=== PATIENT | female | born 1935 | race Caucasian/White ===

== ENCOUNTER → 2021-03-15 | Outpatient (CLI) | payer MEDICARE ==
[~2021-03-15] MED LIST: ALDACTONE 25MG25 MG PO; ASPIR 8181 MG PO; CRESTOR10 MG PO; DIABETA 5 MG TAB5 MG PO; LORTAB 5-325 M1 EACH PO; MEGESTROL ACETA40 MG PO; MS CONTIN TAB S15 MG PO; NORVASC 5 MG TAB5 MG PO; TAMOXIFEN CITRA20 MG PO; TENORMIN 50 MG50 MG PO; TRADJENTA5 MG PO
== END ==
LOC: KOH-I 10:56
DX: D47.3 Essential (hemorrhagic) thrombocythemia (principal); C34.32 Malignant neoplasm of lower lobe, left bronchus or lung; C79.51 Secondary malignant neoplasm of bone; I82.409 Acute embolism and thrombosis of unspecified deep veins of unspecified lower extremity; R91.8 Other nonspecific abnormal finding of lung field
CPT/HCPCS: 71250; 74176

== ENCOUNTER 2021-09-01 19:51 | Inpatient (IN) | payer MEDICARE ==
[~2021-09-01] VITALS: Ht 162.6 cm; Wt 61.2 kg
[~2021-09-01 19:51] MED LIST changes: +MEGACE TAB 40 M40 MG PO; -MEGESTROL ACETA40 MG PO
[2021-09-01 20:46] LABS: HEMOGLOBIN 10.9 gm/dl (12.3-15.3); RED BLOOD COUNT 3.56 M/UL (4.00-5.10); WHITE BLOOD COUNT 6.1 K/UL (4.5-11.0)
[2021-09-01 21:01] LABS: BUN/CREATININE RATIO 12 (0-10)
[2021-09-02] MEDS ORDERED: MEGACE TAB 40 M40 MG PO (09:44)
[2021-09-02] MEDS ORDERED: ELIQUIS2.5 MG PO (09:45)
[2021-09-02] MEDS ORDERED: TRADJENTA5 MG PO (09:46)
[2021-09-02] MEDS ORDERED: GLUCOTROL5 MG PO (09:46)
[2021-09-02] MEDS ORDERED: MULTIVITAMIN1 EACH PO (09:46)
[2021-09-02] MEDS ORDERED: VITAMIN B-12500 MCG PO (09:47)
[2021-09-02 10:35] LABS: WHITE BLOOD COUNT 6.2 K/UL (4.5-11.0)
[2021-09-02 10:45] LABS: HEMOGLOBIN 8.4 gm/dl (12.3-15.3); RED BLOOD COUNT 2.79 M/UL (4.00-5.10)
[2021-09-03 03:59] LABS: HEMOGLOBIN 7.8 gm/dl (12.3-15.3); RED BLOOD COUNT 2.64 M/UL (4.00-5.10); WHITE BLOOD COUNT 6.5 K/UL (4.5-11.0)
--- NOTE | 2021-09-03 13:37 | NUR ---
PATIENT LEFT FLOOR PER SURGERY STAFF AT 1135AM. FAMILY INSTRUCTED TO WAIT ON 2ND FLOOR. SEEN BY DR PRIETO
--- NOTE | 2021-09-03 16:43 | NUR ---
PATIENT RETURNS TO ROOM PER SURGERY STAFF. VS WNL. NADN. WILL CONTINUE TO MONITOR. AQUACEL DRESSING TO THE RIGHT LEG. NO S/S INFECTION OR DRAINAGE NOTED
[2021-09-04 03:08] LABS: WHITE BLOOD COUNT 7.6 K/UL (4.5-11.0)
[2021-09-04 03:36] LABS: HEMOGLOBIN 10.7 gm/dl (12.3-15.3); RED BLOOD COUNT 3.55 M/UL (4.00-5.10)
[2021-09-05 04:10] LABS: HEMOGLOBIN 9.1 gm/dl (12.3-15.3); WHITE BLOOD COUNT 6.9 K/UL (4.5-11.0)
[2021-09-05 04:11] LABS: RED BLOOD COUNT 3.06 M/UL (4.00-5.10)
[2021-09-06 07:37] LABS: HEMOGLOBIN 9.5 gm/dl (12.3-15.3); RED BLOOD COUNT 3.18 M/UL (4.00-5.10); WHITE BLOOD COUNT 7.7 K/UL (4.5-11.0)
[2021-09-06] MEDS ORDERED: HYDROCODON-ACE1 EAC4 PO (12:33)
[2021-09-08 05:57] LABS: RED BLOOD COUNT 3.01 M/UL (4.00-5.10); WHITE BLOOD COUNT 7.1 K/UL (4.5-11.0)
== END 2021-09-08 18:39 | disposition home health service (06) | DRG 481 ==
LOC: ER1 19:51 → PROG CARE 22:08 → M/S 22:08 → CDU 22:08 → PROG CARE 23:50 → M/S 09-05 12:55
PROVIDERS: Emergency Medicine; Internal Medicine; Orthopaedic Surgery; Physician Assistant; ADMIT Internal Medicine
PROC: 0QS704Z Reposition Left Upper Femur with Internal Fixation Device, Open Approach (ICD-10-PCS; 2021-09-03)
PROC: 30233N1 Transfusion of Nonautologous Red Blood Cells into Peripheral Vein, Percutaneous Approach (ICD-10-PCS; principal; 2021-09-03 10:15)
DX: S72.091A Other fracture of head and neck of right femur, initial encounter for closed fracture (principal); N17.9 Acute kidney failure, unspecified; D62 Acute posthemorrhagic anemia; E87.2 Acidosis; I82.409 Acute embolism and thrombosis of unspecified deep veins of unspecified lower extremity; C79.51 Secondary malignant neoplasm of bone; E44.0 Moderate protein-calorie malnutrition; M48.54XA Collapsed vertebra, not elsewhere classified, thoracic region, initial encounter for fracture; Z20.822 Contact with and (suspected) exposure to COVID-19; W18.31XA Fall on same level due to stepping on an object, initial encounter; E11.65 Type 2 diabetes mellitus with hyperglycemia; I12.9 Hypertensive chronic kidney disease with stage 1 through stage 4 chronic kidney disease, or unspecified chronic kidney disease; N18.30 Chronic kidney disease, stage 3 unspecified; M41.9 Scoliosis, unspecified; E86.0 Dehydration; M85.80 Other specified disorders of bone density and structure, unspecified site; E55.9 Vitamin D deficiency, unspecified; E11.22 Type 2 diabetes mellitus with diabetic chronic kidney disease; C55 Malignant neoplasm of uterus, part unspecified; Y99.8 Other external cause status; Y92.010 Kitchen of single-family (private) house as the place of occurrence of the external cause; Y93.89 Activity, other specified; Z90.49 Acquired absence of other specified parts of digestive tract; Z90.710 Acquired absence of both cervix and uterus; Z98.890 Other specified postprocedural states; Z83.3 Family history of diabetes mellitus; Z68.23 Body mass index [BMI] 23.0-23.9, adult
CPT/HCPCS: 36415; 70450; 71045; 72170; 73030; 73502; 73552; 76000; 80048; 80053; 80061; 82550; 82553; 82962; 83036; 83540; 83550; 83605; 83735; 83874; 83880; 84100; 84439; 84443; 84484; 84550; 85025; 85027; 85610; 86140; 86850; 86900; 86901; 86920; 93005; 96374; 96375; 97110-GP-CQ; 97116-GP-CQ; 97161; 97165; 97530; 97530-GP-CQ; 97535; 99285; C1713; J0171; J0690; J1100; J1644; J1650; J1750; J2001; J2250; J2270; J2370; J2405; J2795; J3010; J7030; J7120; P9016; U0002